=== PATIENT | female | born 1960 | race Caucasian/White ===

== ENCOUNTER → 2016-11-09 | Outpatient (CLI) | payer MEDICAID ==
[~2016-11-09] MED LIST: Roxicodone5 MG PO
== END ==
LOC: RT 11:45
DX: J44.9 Chronic obstructive pulmonary disease, unspecified (principal)

== ENCOUNTER 2017-04-11 09:29 | Emergency (ER) | payer MEDICAID ==
[~2017-04-11] VITALS: Ht 162.6 cm; Wt 54.9 kg
[~2017-04-11 09:29] MED LIST changes: +BACTRIM DS 8001 TA1 PO; +PYRIDIUM200 M2 PO
[2017-04-11] MEDS ORDERED: IPRATROPIUM 2.2.5 ML INH (10:24)
--- NOTE | 2017-04-11 10:49 | [facility]gent Treatment Center Report ---
History of Present Issue Date/Time Seen by Provider 04/11/17 1048 Visit Reason Pt arrived:Walked Presenting Problem:PT STATES POISON KATLYN FOR A WEEK Location if Accident: Onset of symptoms date/time:/ or onset unknown for:MEDICAL HX UNKNOWN Have you (or family members/close friends) recently traveled outside the [place]? N If Yes, where/when: Have you had exposure to infectious disease within the past month? TB? Other? Specify: Patient has a history of being allergic to poison katlyn States that she was exposed several days ago and it has continued to get worse and spread over her body. State that she thought she could control it with Calamine and benadryl but it has continued to get worse so she came in to get checked ALLERGIES Coded Allergies: acetaminophen (Intermediate, I-HIVES 11/09/16) Home Medications Reported Medications Ipratropium [place] (Ipratropium 0.5MG Neb Soln) 0.5 MG INH TID PRN . History Medical History General CAD? No Angina: No [place]: No Hypertension? No Hyperlipidemia? No CHF? No DVT? No PE? No COPD? No Asthma? No Anemia? No GERD? No Gastric ulcers? No GI Bleed? No Hernia? No Thyroid Problems? No Hypothyroidism? No CVA? No Seizures? No Diabetes? No Renal Insuffiency? No UTI? No Stones? No BPH? No GB Disease: No Nephritic Syndrome? No Asplenia? No Hepatitis? No Sickle Cell Disease? No Arthritis? No Migraines? No Cataracts? No Glaucoma? No MRSA? No HIV? No TB? No Anxiety? No Depression? No Cancer? No More? No Immunization HX DT/Tetanus > 10 Years Ago Pneumonia Refuses Surgical Hx Previous Surgery?N Social History Smoking Hx Smoker: Current Every Day Smoker Tobacco: Yes Type Cigarettes Packs/day < 1 Pack Alcohol Alcohol: No Review of Systems All Other Systems Reviewed and Negative Skin rash Physical Exam Vital Signs Vital Signs Date Time Temp Pulse Resp B/P Pulse O2 O2 Flow FiO2 Ox Delivery Rate 04/11 1022 97.8 75 18 173/74 98 General Appearance normal appearance, WD/WN, no apparent distress Respiratory Status Yes: trachea midline, chest symmetrical, non tender chest. No: respiratory distress. 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 that appears to be spreading Medical Decision Making LABS/Meds/Orders Pt receiving controlled substance in ED? No Results/Orders Current Medication Orders Sig/Britney Start time Last Medication Dose Route Stop Time Status Admin Methylprednisolone 125 MG ONCE ONE 04/11 1100 DC 04/11 Sodium Succinate IM 04/11 1101 1057 Methylprednisolone 0 .STK-MED ONE 04/11 1056 DC Sodium Succinate .ROUTE Departure Departure Time of Disposition 1107 Disposition DC Home or Self Care(routine) Clinical Impression Primary Impression: Poison katlyn dermatitis Condition STABLE Referrals Paula VAZQUEZ,Jesus Gage (Family): 4 Days-Call Office if no improvement Patient Instructions DI for Poison Katlyn Allergy, Poison Katlyn, Poison [place], Poison [place] Additional Instructions Keep area clean and dry Over the counter Benadryl, Calamine lotion and hydocortisone for itching Aveeno bath will help to dry the lesions and help to soothe rash Return if needed FOllow up with family doctor Discharge Counseling Counseled pt/family regarding diagnosis, medications/RX, home care, follow up needs at 1103
[2017-04-11 11:14] VITALS: BP 173/74
== END 2017-04-11 11:15 | disposition home or self-care (01) ==
LOC: UTC 09:29
DX: L23.7 Allergic contact dermatitis due to plants, except food (principal); Z72.0 Tobacco use